=== PATIENT | female | born 1995 | race African-American/Black ===

== ENCOUNTER 2021-05-08 02:21 | Emergency (ER) | payer OTHER ==
[~2021-05-08] VITALS: Ht 167.6 cm; Wt 100.0 kg
[2021-05-08 02:56] VITALS: BP 152/82
[2021-05-08] MEDS ORDERED: BACITRACIN ZINC OINT UDPKT TOP ONE (03:15)
[2021-05-08] MEDS ORDERED: IBUPROFEN 600MG TABLET PO ONE (03:15)
[2021-05-08] MEDS ORDERED: TETANUS, DIPHTHERIA, PERTUSSIS VAC/PF 0.5ML (>7YR OLD) IM ONE (03:15)
[2021-05-08] MEDS ORDERED: LIDOCAINE HCL/PF 1% 10 MG/ML 5ML VIAL INFIL ONE (03:15)
[2021-05-08] MEDS ORDERED: BO1 TP (05:13)
[2021-05-08] MEDS ORDERED: IBUP-2029 MT (05:13)
== END 2021-05-08 05:45 | disposition home or self-care (01) ==
LOC: ER 02:21
DX: S91.312A Laceration without foreign body, left foot, initial encounter (principal); S91.332A Puncture wound without foreign body, left foot, initial encounter; Z79.899 Other long term (current) drug therapy; W33.01XA Accidental discharge of shotgun, initial encounter; Y93.89 Activity, other specified; Y92.89 Other specified places as the place of occurrence of the external cause; Y99.8 Other external cause status
CPT/HCPCS: 12002; 73630; 90471; 90715; 99284; A4217; J3490; Z7610

== ENCOUNTER 2021-05-22 14:08 | Emergency (ER) | payer OTHER ==
[~2021-05-22] VITALS: Ht 167.6 cm; Wt 91.0 kg
[~2021-05-22 14:08] MED LIST: BO1 TP; IBUP-2029 MT
[2021-05-22 14:23] VITALS: BP 140/102
[2021-05-22] MEDS ORDERED: BACITRACIN ZINC OINT UDPKT TOP ONE (16:00)
== END 2021-05-22 16:12 | disposition home or self-care (01) ==
LOC: ER 14:08
DX: Z48.02 Encounter for removal of sutures (principal)
CPT/HCPCS: 99281; Z7610